=== PATIENT | female | born 1980 | race Native Hawaiian/Other Pacific Islander ===

== ENCOUNTER → 2022-10-16 11:09 | Outpatient (CLI) | payer OTHER, SELFPAY ==
--- NOTE | 2022-10-16 | DI.CT.S_ITS ---
PROCEDURE: CT KIDNEY URETER BLADDER (KUB) INDICATIONS: URGENCY URINATION TECHNIQUE: Axial sections were acquired from the lung bases to the pubic symphysis. Coronal and sagittal reformats were performed. For radiation dose reduction, the following was used: automated exposure control, adjustment of mA and/or kV according to patient size. COMPARISON: None. FINDINGS: Lung bases: No pleural effusion. URINARY: 3-4 mm nonobstructing stone left upper kidney. No right renal stone. No ureteral stone or hydroureteronephrosis bilaterally. No bladder stones visualized. ABDOMEN: Liver: Unremarkable. Gallbladder: Unremarkable. Biliary ducts: Unremarkable. Pancreas: Unremarkable. Spleen: Unremarkable. Adrenal Glands: Unremarkable. Stomach and Bowel: No bowel obstruction. Peritoneum: No abnormal intraperitoneal fluid. No free air. Abdominal Nodes: No enlarged retroperitoneal or mesenteric lymph nodes. Vessels: Aorta and inferior vena cava are normal in size. PELVIS: Pelvic Organs: Unremarkable. Pelvic Nodes: Unremarkable. Bones: No lumbar vertebral compression fractures. IMPRESSION: 1. A 3-4 mm nonobstructing left renal stone is present. 2. No right renal stone visualized. No ureteral or bladder stone visualized. Dictated by: Satish Harris M.D. on 10/17/2022 at 10:15 Approved by: Satish Harris M.D. on 10/17/2022 at 10:33
== END ==
PROVIDERS: PCP Student in an Organized Health Care Education/Training Program; Referring Provider Student in an Organized Health Care Education/Training Program; Visit Provider Student in an Organized Health Care Education/Training Program
DX: N20.0 Calculus of kidney (principal); R39.15 Urgency of urination
CPT/HCPCS: 74176

== ENCOUNTER → 2023-10-11 11:30 | Outpatient (CLI) | payer OTHER, SELFPAY ==
--- NOTE | 2023-10-11 11:32 | DI.MG.S_ITS ---
BILATERAL DIGITAL SCREENING MAMMOGRAM 3D/2D WITH CAD: 10/11/2023 CLINICAL: Baseline exam. Routine screening. No prior exams were available for comparison. Both breasts are heterogeneously dense, which may obscure small masses (category c / 51-75% glandular tissue). Current study was also evaluated with a Computer Aided Detection (CAD) system. There is a possible asymmetry in the left breast anterior depth inferior region seen on the mediolateral oblique view only. There is skin thickening in the left breast outer lower quadrant. No other significant masses, calcifications, or other findings are seen in either breast. IMPRESSION: INCOMPLETE: NEEDS ADDITIONAL IMAGING EVALUATION The possible asymmetry in the left breast is indeterminate. Additional views with possible ultrasound are recommended. There is skin thickening in the left breast outer lower quadrant, overlying the asymmetry. Clinical evaluation is also recommended. Based on the Tyrer Cuzick model (a risk assessment model) the patient's lifetime risk is 13.7% and her 10 year risk is 2.5%. According to the ACR, ACS, and NCCN guidelines, an annual breast MRI exam along with mammogram is recommended if the patient's lifetime risk is 20% or greater. This exam was interpreted at Station ID: [id number]. NOTE: For mammograms, a report in lay terms will be sent to the patient. Approximately 15% of breast malignancies will not be visualized mammographically. In the management of a palpable breast mass, a negative mammogram must not discourage biopsy of a clinically suspicious lesion. Electronically Signed By: Bernardino Hinds M.D. lc/:10/11/2023 16:47:59 letter sent: Additional Imaging Needed ACR BI-RADS Category 0: Incomplete [id number]
== END ==
PROVIDERS: PCP Family Medicine; Referring Provider Family Medicine; Visit Provider Family Medicine
DX: Z12.31 Encounter for screening mammogram for malignant neoplasm of breast (principal); R92.333 Mammographic heterogeneous density, bilateral breasts
CPT/HCPCS: 77063; 77067

== ENCOUNTER → 2023-11-12 09:42 | Outpatient (CLI) | payer OTHER, SELFPAY ==
--- NOTE | 2023-11-12 09:43 | DI.MG.S_ITS ---
UNILATERAL LEFT DIGITAL DIAGNOSTIC MAMMOGRAM 3D/2D WITH ADDITIONAL VIEWS: 11/12/2023 CLINICAL: Additional evaluation requested from prior study. Comparison is made to exam dated: 10/11/2023 mammogram - [facility]. The breasts are heterogeneously dense, which may obscure small masses (category c / 51-75% glandular tissue). The previously described possible asymmetry in the left breast anterior depth inferior region seen on the mediolateral oblique view only is not confirmed in additional views and appears less prominent. No other significant masses or calcifications are seen in the breast. IMPRESSION: INCOMPLETE: NEED ADDITIONAL IMAGING EVALUATION The possible asymmetry in the left breast resembles fibroglandular tissue and is indeterminate. An ultrasound is recommended for further evaluation and is scheduled to immediately follow this examination. Based on the Tyrer Cuzick model (a risk assessment model) the patient's lifetime risk is 14.5% and her 10 year risk is 2.7%. According to the ACR, ACS, and NCCN guidelines, an annual breast MRI exam along with mammogram is recommended if the patient's lifetime risk is 20% or greater. This exam was interpreted at Station ID: [id number]. NOTE: For mammograms, a report in lay terms will be sent to the patient. Approximately 15% of breast malignancies will not be visualized mammographically. In the management of a palpable breast mass, a negative mammogram must not discourage biopsy of a clinically suspicious lesion. Electronically Signed By: Mc Trujillo M.D. aty/:11/12/2023 10:43:50 ACR BI-RADS Category 0: Incomplete: Need Additional Imaging Evaluation
--- NOTE | 2023-11-12 09:44 | DI.US.S_ITS ---
LIMITED ULTRASOUND OF LEFT BREAST AND AXILLA: 11/12/2023 CLINICAL: Patient returns today to evaluate a focal asymmetry in the left breast. Comparison is made to exams dated: 11/12/2023 mammogram and 10/11/2023 mammogram - [facility]. Real-time ultrasound of the left breast 6-9 o'clock, and axilla regions was performed. [place] scale images of the real-time examination were reviewed. No significant abnormalities were seen sonographically in the left breast or the left axilla. IMPRESSION: NEGATIVE There is no sonographic evidence of malignancy. There is no abnormality seen in the left breast to correspond with the mammography finding which likely represents normal fibroglandular tissue. A 1 year screening mammogram is recommended. Findings and recommendations were conveyed to the patient during today's evaluation. This exam was interpreted at Station ID: [id number]. Electronically Signed By: Mc Trujillo M.D. aty/:11/12/2023 11:15:37 letter sent: Normal Exam ACR BI-RADS Category 1: Negative
== END ==
LOC: MAMMO 09:43
PROVIDERS: PCP Family Medicine; Referring Provider Family Medicine; Visit Provider Family Medicine
DX: R92.8 Other abnormal and inconclusive findings on diagnostic imaging of breast (principal); R92.333 Mammographic heterogeneous density, bilateral breasts
CPT/HCPCS: 76642; 77065; G0279